=== PATIENT | male | born 1965 | race American Indian/Alaskan Native ===

== ENCOUNTER 2017-02-28 11:47 | Emergency (ER) | payer SELFPAY ==
[2017-02-28 12:57] VITALS: BP 128/88
[2017-02-28] MEDS ORDERED: DUONEB 0.5 MG-3 MG/3 ML SOLN IH ONE (18:19)
[2017-02-28] MEDS ORDERED: MOTRIN PO ONE (18:19)
--- NOTE | 2017-02-28 18:54 | Emergency Department Report ---
ED General Adult HPI - General Chief complaint: Upper Respiratory Infection Stated complaint: RESPIRATORY INFECTION Time Seen by Provider: 02/28/17 18:07 Source: patient Mode of arrival: Ambulatory Limitations: No Limitations - History of Present Illness Initial comments: PT states he woke up yesterday with sore throat. PT states last night he noticed that he had chest congestion. PT states he has a cough and is producing dark sputum. PT states this am, he started having a hacking cough. PT states that he has not had a fever but he keeps getting the chills and he feels febrile. PT denies any significant pmh. MD Complaint: cough Onset/Timin -: Gradual, days(s) Location: chest Radiation: non-radiation Severity scale (0 -10): 5 Consistency: constant Improves with: none Associated Symptoms: fever/chills, loss of appetite, weakness (generalized fatigue ). denies: nausea/vomiting, shortness of breath Treatments Prior to Arrival: none - Related Data Allergies Allergy/AdvReac Type Severity Reaction Status Date / Time No Known Allergies Allergy Unverified 02/28/17 12:54 ED Review of Systems ROS: Stated complaint: RESPIRATORY INFECTION Other details as noted in HPI Comment: All other systems reviewed and negative Constitutional: chills, malaise, weakness. denies: fever ENT: throat pain. denies: ear pain Respiratory: cough, other (chest congestion ). denies: shortness of breath ED Past Medical Hx - Past Medical History Previous Medical History?: Yes Additional medical history: URI - Surgical History Past Surgical History?: No - Social History Smoking Status: Current Every Day Smoker Substance Use Type: Alcohol ED Physical Exam - General Limitations: No Limitations General appearance: alert, in no apparent distress - Head Head exam: Present: atraumatic, normocephalic, normal inspection - Eye Eye exam: Present: normal appearance. Absent: conjunctival injection - ENT ENT exam: Present: normal exam, normal orophraynx, mucous membranes moist, TM's normal bilaterally, normal external ear exam - Neck Neck exam: Present: normal inspection. Absent: tenderness - Respiratory Respiratory exam: Present: normal lung sounds bilaterally, other (pt with cough during exam ). Absent: respiratory distress, wheezes, rhonchi, chest wall tenderness, accessory muscle use - Cardiovascular Cardiovascular Exam: Present: regular rate, normal rhythm, normal heart sounds - GI/Abdominal GI/Abdominal exam: Present: soft. Absent: tenderness - Extremities Exam Extremities exam: Present: normal inspection, full ROM - Back Exam Back exam: Present: normal inspection, full ROM. Absent: tenderness, CVA tenderness (R), CVA tenderness (L), muscle spasm, paraspinal tenderness, vertebral tenderness - Neurological Exam Neurological exam: Present: alert, oriented X3, normal gait - Psychiatric Psychiatric exam: Present: normal affect, normal mood - Skin Skin exam: Present: warm, dry, intact ED Course Vital Signs 02/28/17 12:54 Temperature 98.3 F Pulse Rate 57 L Respiratory 18 Rate Blood Pressure 128/88 O2 Sat by Pulse 99 Oximetry - Reevaluation(s) Reevaluation #1: 02/28/17 19:32 PT states he is feeling better sp neb. PT is aware of CXR results. Due to pt' s tobacco use, will treat as complicated bronchitis. PT encouraged to refrain from smoking, however pt does not seem ready to quit. - Pulse Oximetry Interpretation Digit-Finger Initial Pulse Oximetry Readin Actions Taken: none ED Medical Decision Making - Radiology Data Radiology results: report reviewed, image reviewed CXR- nap - Differential Diagnosis bronchitis, pna, uri Critical care attestation.: If time is entered above; I have spent that time in minutes in the direct care of this critically ill patient, excluding procedure time. ED Disposition Clinical Impression: Bronchitis, Tobacco abuse Disposition: DISCHARGED TO HOME OR SELFCARE Is pt being admited?: No Does the pt Need Aspirin: No Condition: Stable Instructions: Acute Bronchitis (ED) Referrals: PRIMARY CAREMD [Primary Care Provider] - 3-5 Days JULIANNA REDMOND MD [Staff Physician] - 3-5 Days [facility] [Outside] - 3-5 Days [facility] [Outside] - 3-5 Days Forms: Work/School Release Form(ED) Time of Disposition: 19:35
--- NOTE | 2017-02-28 18:54 | XRay Report ---
FINAL REPORT EXAM: XR CHEST ROUTINE 2V HISTORY: productive cough TECHNIQUE: PA and lateral views of the chest PRIORS: None. FINDINGS: Lines, tubes, and devices: N/A Lungs and pleura: Trachea is normal in position. Lungs are clear of infiltrate, pleural effusion, vascular congestion, or pneumothorax. Cardiomediastinal silhouette: Cardiac and mediastinal silhouettes are unremarkable. Other: Bony structures are intact. IMPRESSION: No acute cardiopulmonary process seen.
== END 2017-02-28 19:45 | disposition home or self-care (01) ==
LOC: ED 11:47
DX: J40 Bronchitis, not specified as acute or chronic (principal); F17.200 Nicotine dependence, unspecified, uncomplicated
CPT/HCPCS: 71020

== ENCOUNTER 2017-08-06 23:44 | Emergency (ER) | payer SELFPAY ==
[2017-08-07] MEDS ORDERED: MOTRIN PO ONE (03:37)
[2017-08-07] MEDS ORDERED: BACTRIM DS PO ONE (03:37)
[2017-08-07] MEDS ORDERED: XYLOCAINE 2% INFILTRATI ONE (03:37)
--- NOTE | 2017-08-07 03:41 | Emergency Department Report ---
Upper Extremity - HPI Chief Complaint: Extremity Injury, Upper Stated Complaint: LEFT THUMP PAIN Time Seen by Provider: 08/07/17 03:37 Upper Extremity: Left Thumb Occurred When: 2 Days Severity: mild Symptoms: Yes Pain with Movement, Yes Swelling, No Deformity, No Limited Range of Movement, No Numbness, No Weakness, No Bruising/Ecchymosis, No Laceration or Abrasion Other History: 52-year-old male past medical history none presents with complaint of pain to left distal thumb nail edge. Visible purulence at edge of nail underneath skin. Denies any current drainage. States that the edge of his nail is very tender. ED Review of Systems ROS: Stated complaint: LEFT THUMP PAIN Other details as noted in HPI Constitutional: denies: chills, fever Eyes: denies: eye pain, eye discharge, vision change ENT: denies: ear pain, throat pain Respiratory: denies: cough, shortness of breath, wheezing Cardiovascular: denies: chest pain, palpitations Endocrine: no symptoms reported Gastrointestinal: denies: abdominal pain, nausea, diarrhea Genitourinary: denies: urgency, dysuria Musculoskeletal: denies: back pain, joint swelling, arthralgia Skin: denies: rash, lesions Neurological: denies: headache, weakness, paresthesias Psychiatric: denies: anxiety, depression Hematological/Lymphatic: denies: easy bleeding, easy bruising ED Past Medical Hx - Past Medical History Previous Medical History?: Yes Additional medical history: URI - Surgical History Past Surgical History?: No - Social History Smoking Status: Former Smoker Substance Use Type: None - Medications Home Medications: Home Medications Medication Instructions Recorded Confirmed Last Taken Type Albuterol Sulfate [Ventolin HFA] 2 puff IH Q4H PRN #1 hfa.aer.[id number] 02/28/17 Unknown Rx Azithromycin [Zithromax] 250 mg PO DAILY #6 tablet 02/28/17 Unknown Rx Benzonatate [Tessalon Perles] 100 mg PO Q8HR PRN #12 capsule 02/28/17 Unknown Rx Ibuprofen [Motrin] 600 mg PO Q8H PRN #15 tablet 02/28/17 Unknown Rx Ibuprofen [Motrin] 800 mg PO Q8HR PRN #25 tablet 08/07/17 Unknown Rx Sulfamethoxazole/Trimethoprim 1 each PO BID #14 tablet 08/07/17 Unknown Rx [Bactrim DS TAB] Upper Extremity Exam - Exam General: Vital signs noted. No distress. Alert and acting appropriately. Head and Torso: No HEENT Abnormality, No Neck Tenderness, No Chest/Lungs Abnormality, No Abdominal Tenderness, No Back Tenderness Shoulder Exam: Yes Normal Range of Motion in Shoulder, No Shoulder Tenderness, No Clavicle Tenderness, No Shoulder Deformity, No AC Joint Tenderness Arm Exam: No Arm/Humerus Tenderness, No Arm Deformity Elbow: No Elbow Tenderness, No Normal Range of Motion in Elbow, No Elbow Deformity Forearm: No Forearm Tenderness, No Forearm Deformity, No Pain with Pronation, No Pain with Supination Wrist: Yes Normal ROM in Wrist, No Wrist Tenderness, No Wrist Deformity, No Snuffbox Tenderness, No Pain with Axial Thumb Compression Hand: Yes Digit Tenderness (tenderness at edge of thumbnail), Yes Normal ROM in Digit(s), No Hand Tenderness, No Hand Deformity, No Digit(s) Deformity, No Tendon Dysfunction CMS Exam: Yes Normal Distal Pulses (distal dosralis pedis and posterior tibial pulses intact), Yes Normal Capillary Refill (less than 1 second each finger), Yes Normal Distal Sensation, No Broken Skin Hand L/R Back: 1 - paronychia here ED Course Vital Signs 08/07/17 08/07/17 00:29 00:34 Temperature 98.4 F 98.4 F Pulse Rate 64 64 Respiratory 18 18 Rate Blood Pressure 150/97 Blood Pressure 150/97 [Right] O2 Sat by Pulse 98 98 Oximetry - I & D Left Distal Finger Type of Procedure: Simple Site: left distal thumb Blade Size: 11 Progress: small amount of purulent drainage from paronychia site, pt felt significant relief after, paronychia decompressed. dressed with bandaid after ED Medical Decision Making - Medical Decision Making A/P: Left distal thumb paronychia 1-relief of paronychia achieved 2-motrin when necessary 4-patient advised to return if paronychia re-accumulates Critical care attestation.: If time is entered above; I have spent that time in minutes in the direct care of this critically ill patient, excluding procedure time. ED Disposition Clinical Impression: Paronychia of thumb, left Disposition: DC-01 TO HOME OR SELFCARE Is pt being admited?: No Does the pt Need Aspirin: No Condition: Stable Instructions: Paronychia (ED), Acute Wound Care (ED), Incision and Drainage (ED ) Prescriptions: Ibuprofen [Motrin] 800 mg PO Q8HR PRN #25 tablet PRN Reason: Pain Sulfamethoxazole/Trimethoprim [Bactrim DS TAB] 1 each PO BID #14 tablet Referrals: [facility] [Outside] - 3-5 Days [facility] [Outside] - 3-5 Days Time of Disposition: 03:41
[2017-08-07 05:36] VITALS: BP 132/79
== END 2017-08-07 05:36 | disposition home or self-care (01) ==
LOC: ED 23:44
DX: L03.012 Cellulitis of left finger (principal); Z87.891 Personal history of nicotine dependence

== ENCOUNTER 2019-02-23 18:24 | Emergency (ER) | payer OTHER ==
[2019-02-23] MEDS ORDERED: IBUPROFEN PO ONE (18:38)
--- NOTE | 2019-02-23 18:38 | Emergency Department Report ---
Chief Complaint: Sore Throat Stated Complaint: THROAT PAIN/LFT SIDE PAIN EXTREME Time Seen by Provider: 02/23/19 18:36 - HPI History of Present Illness: SEVERE L EAR AND THROAT PAIN 99.9 TEMP PMH NONE RX NONE CIG ETOH PSH NONE PCP NONE MSE screening note: Focused history and physical exam performed. Due to findings the following was ordered: ED Disposition for MSE Condition: Stable
[2019-02-23] MEDS ORDERED: TYLENOL PO ONE (18:39)
[2019-02-23] MEDS ORDERED: DECADRON IM ONE (18:40)
[2019-02-23] MEDS ORDERED: TYLENOL ONE (18:43)
[2019-02-23] MEDS ORDERED: BICILLIN L-A IM ONE (19:54)
--- NOTE | 2019-02-23 19:55 | Emergency Department Report ---
Minor Respiratory - HPI Chief Complaint: Sore Throat Stated Complaint: throat pain Time Seen by Provider: 02/23/19 18:36 Duration: 3 Days Pain Location: Throat Severity: moderate Minor Respiratory: Yes Sore Throat, Yes Able to Tolerate Fluids, Yes Ear Pain, Yes Fever, No Rhinorrhea, No Cough, No Sick Contacts, No Hemoptysis, No Chest Pain, No Shortness of Breath Other History: pT is a 53-year-old male that comes to the ER complaining of a 3 to four-day history of sore throat. Patient is ambulatory. He has stable vital signs. He is taking by mouth. He is talking without difficulty. ABCs intact. ED Review of Systems ROS: Stated complaint: THROAT PAIN/LFT SIDE PAIN EXTREME Other details as noted in HPI Comment: All other systems reviewed and negative Constitutional: see HPI Eyes: denies: eye pain ENT: as per HPI, throat pain Respiratory: denies: cough Cardiovascular: denies: palpitations Endocrine: denies: excessive sweating Gastrointestinal: denies: nausea Genitourinary: denies: urgency ED Past Medical Hx - Past Medical History Previous Medical History?: No Additional medical history: URI - Surgical History Past Surgical History?: No - Family History Family history: no significant - Social History Smoking Status: Current Every Day Smoker Substance Use Type: Alcohol - Medications Home Medications: Home Medications Medication Instructions Recorded Confirmed Last Taken Type Amoxicillin 500 mg PO BID #20 capsule 02/23/19 Unknown Rx predniSONE [Deltasone] 20 mg PO DAILY #5 tablet 02/23/19 Unknown Rx Minor Respiratory Exam - Exam General: Vital signs noted. No distress. Alert and acting appropriately. HEENT: Yes Pharyngeal Erythema (UVULA MIDLINE AND INFLAMMED. NO ABSCESS. ), Yes Moist Mucous Membranes, No Pharyngeal Exudates, No Rhinorrhea, No Conjuctival Injection, No Frontal Tenderness, No Maxillary Tenderness Ear: Neither TM Bulge, Neither TM Erythema, Neither EAC Pain, Neither EAC Discharge Neck: Yes Supple, No Adenopathy Lungs: Yes Good Air Exchange, No Wheezes, No Ronchi, No Stridor, No Cough, No Labored Respirations, No Retractions, No Use of Accessory Muscles, No Other Abnormal Lung Sounds Heart: Yes Regular, No Murmur Abdomen: Yes Normal Bowel Sounds, No Tenderness, No Peritoneal Signs Skin: No Rash, No Edema Neurologic: Alert and oriented, no deficits. Musculoskeletal: Unremarkable. ED Course Vital Signs 02/23/19 18:36 Temperature 99.9 F H Pulse Rate 72 Respiratory 20 Rate Blood Pressure 157/82 O2 Sat by Pulse 98 Oximetry ED Medical Decision Making - Medical Decision Making Vital Signs 02/23/19 02/23/19 18:36 20:39 Temperature 99.9 F H 98.6 F Pulse Rate 72 70 Respiratory 20 18 Rate Blood Pressure 157/82 Blood Pressure 139/80 [Right] O2 Sat by Pulse 98 97 Oximetry ABC INTACT TAKING PO MEDICATED IN ER DC HOME WITH DC PLAN OF CARE. Critical care attestation.: If time is entered above; I have spent that time in minutes in the direct care of this critically ill patient, excluding procedure time. ED Disposition Clinical Impression: Uvulitis Disposition: DC-01 TO HOME OR SELFCARE Is pt being admited?: No Does the pt Need Aspirin: No Condition: Stable Instructions: Uvulitis (ED) Additional Instructions: HYDRATE WELL WITH WATER MOTRIN OR TYLENOL FOR FEVER DIET TOLERATED ACTIVITY TOLERATED TAKE MEDS ORDERED TODAY FOLLOW UP PCP NEXT WEEK REFERRAL GIVEN BELOW Prescriptions: Amoxicillin 500 mg PO BID #20 capsule predniSONE [Deltasone] 20 mg PO DAILY #5 tablet Referrals: [facility] [Outside] - 3-5 Days Time of Disposition: 19:52
[2019-02-23 20:56] VITALS: BP 139/80
== END 2019-02-23 20:39 | disposition home or self-care (01) ==
LOC: ED 18:24
DX: K12.2 Cellulitis and abscess of mouth (principal); F17.200 Nicotine dependence, unspecified, uncomplicated
CPT/HCPCS: 96372; 99282; J0561; J1100